=== PATIENT | female | born 1985 | race Caucasian/White ===

== ENCOUNTER 2017-10-28 18:29 | Emergency (ER) | payer OTHER ==
[~2017-10-28] VITALS: Ht 154.9 cm; Wt 71.7 kg
[2017-10-28 18:46] VITALS: Ht 154.9 cm; Wt 71.7 kg
[2017-10-28 21:50] VITALS: BP 112/79
== END 2017-10-28 22:00 | disposition home or self-care (01) ==
LOC: ED 18:29
DX: L60.0 Ingrowing nail (principal)
CPT/HCPCS: 90715; J2001

== ENCOUNTER 2018-08-27 11:26 | Emergency (ER) | payer OTHER ==
[~2018-08-27] VITALS: Ht 154.9 cm; Wt 70.8 kg
[2018-08-27 11:42] VITALS: Ht 154.9 cm; Wt 70.8 kg
[2018-08-27 13:02] VITALS: BP 120/74
== END 2018-08-27 13:02 | disposition home or self-care (01) ==
LOC: ED 11:26
DX: R51 Headache (principal); Z90.89 Acquired absence of other organs
CPT/HCPCS: J1885

== ENCOUNTER 2018-08-28 11:35 | Emergency (ER) | payer OTHER ==
[~2018-08-28] VITALS: Ht 154.9 cm; Wt 71.2 kg
[2018-08-28 11:56] VITALS: Ht 154.9 cm; Wt 71.2 kg
[2018-08-28 13:13] VITALS: BP 116/72
== END 2018-08-28 13:13 | disposition home or self-care (01) ==
LOC: ED 11:35
DX: R51 Headache (principal)